=== PATIENT | female | born 1950 | race African-American/Black ===

== ENCOUNTER 2022-07-11 06:17 | Inpatient (IN) | payer OTHER, MEDICAID ==
[~2022-07-11] VITALS: Ht 160 cm; Wt 113.4 kg
[2022-07-11] VITALS (9 sets, daily range): BP systolic 125–150; BP diastolic 58–120
[~2022-07-11 06:17] MED LIST: CELEBREX PO; CLON0.1T PO; FLUT50DI; LISI20TA PO; OMEP40CA PO; P20 PO; SOMA PO
[2022-07-11 07:29] LABS: HEMATOCRIT. 22.3 % (36.0-48.0); LYMPHOCYTES % 12.5 % (20.0-50.0); MEAN CORPUSCULAR VOLUME 70.7 fL (81.0-99.0); MEAN PLATELET VOLUME 7.9 fl (7.4-10.4); MONOCYTES % 6.5 % (2.0-8.0); PLATELET 331 x1000/uL (130-400); RED BLOOD CELL COUNT 3.16 mill/uL (4.2-5.4); RED CELL DISTRIBUTION WIDTH 19.4 % (11.6-14.6)
[2022-07-11 07:30] LABS: CHLORIDE 109 mEq/L (98-107)
[2022-07-11 07:33] LABS: HEMOGLOBIN. 6.3 g/dL (12.0-16.0)
[2022-07-11 09:32] LABS: BG BASE EXCESS -3.1 mmol/L (-2.0-2.0); BG CARBOXYHEMOGLOBIN 0.6 % (0.5-1.5); BG DEOXYHEMOGLOBIN 9.5 % (0.0-5.0); BG FRACTION INSPIRED OXYGEN 21; BG METHEMOGLOBIN 0.5 % (0.0-1.5); BG OXYGEN SATURATION 90.4 % (92.0-98.5); BG OXYHEMOGLOBIN 89.4 % (94.0-97.0); BG PCO2 39.4 mmHg (35.0-45.0); BG PH 7.364 (7.350-7.450); BG SAMPLE SITE RIGHT BRACHIAL; BG TOTAL HEMOGLOBIN 6.5 g/dL (12.0-18.0); BG VENT MODE ROOM AIR
[2022-07-11] MEDS ORDERED: ENOXAPARIN 80MG/0.8ML SYR SUBCUT ONE (10:15)
[2022-07-11] MEDS ORDERED: FUROSEMIDE 40MG/4ML VIAL IVP ONE (10:30)
[2022-07-11] MEDS ORDERED: MORPHINE SULFATE 2 MG/ML CPJ (NOT FOR IM USE) IV ONE (10:30)
[2022-07-11] MEDS ORDERED: IOHEXOL-350 100 ML BOTTLE ONE (12:10)
[2022-07-11] MEDS ORDERED: ONDANSETRON HCL 4MG/2ML INJ IV PRN (12:45)
[2022-07-11] MEDS ORDERED: IPRATROPIUM/ALBUTEROL 0.5-3(2.5)MG/3ML NEB HHN PRN (12:45)
[2022-07-11] MEDS ORDERED: DIPHENHYDRAMINE 50MG/ML VIAL IV PRN (12:45)
[2022-07-11] MEDS ORDERED: CLONIDINE 0.1MG TABLET PO PRN (12:45)
[2022-07-11 15:39] LABS: TOTAL IRON BINDING CAPACITY 388 ug/dL (250-450)
[2022-07-11] MEDS: ACETAMINOPHEN 325MG TABLET PO PRN (20:59)
[2022-07-11 21:14] LABS: HEMATOCRIT 25.1 % (36.0-48.0); HEMOGLOBIN 7.5 g/dL (12.0-16.0)
[2022-07-12] VITALS (18 sets, daily range): BP systolic 127–165; BP diastolic 31–99
[2022-07-12] MEDS: ACETAMINOPHEN 325MG TABLET PO PRN (04:16)
[2022-07-12 06:15] LABS: CHLORIDE 104 mEq/L (98-107)
[2022-07-12 06:57] LABS: BASOPHILS % 0.9 % (0.0-2.0); HEMATOCRIT. 23.4 % (36.0-48.0); HEMOGLOBIN. 7.1 g/dL (12.0-16.0); LYMPHOCYTES % 20.8 % (20.0-50.0); MEAN CORPUSCULAR HEMOGLOBIN 21.6 pg (28.0-32.0); MEAN CORPUSCULAR VOLUME 71.4 fL (81.0-99.0); MEAN PLATELET VOLUME 7.9 fl (7.4-10.4); MONOCYTES % 10.3 % (2.0-8.0); PLATELET 272 x1000/uL (130-400); RED BLOOD CELL COUNT 3.28 mill/uL (4.2-5.4); RED CELL DISTRIBUTION WIDTH 21.1 % (11.6-14.6)
[2022-07-12] MEDS ORDERED: HYDROCODONE/ACETAMINOPHEN 5/325MG TABLET PO PRN (09:15)
[2022-07-12] MEDS: CLONIDINE 0.1MG TABLET PO SCH (09:29)
[2022-07-12] MEDS: LISINOPRIL 20MG TABLET PO SCH (09:30)
[2022-07-12] MEDS ORDERED: LORAZEPAM 2MG/ML CPJ IV PRN (11:15)
[2022-07-12] MEDS ORDERED: NALOXONE HCL 0.4MG/ML VIAL IV PRN (11:30)
[2022-07-12] MEDS: MORPHINE SULFATE 2 MG/ML CPJ (NOT FOR IM USE) IV PRN ×2 (15:05→22:32)
[2022-07-12] MEDS: CARISOPRODOL 350 MG TABLET PO SCH (15:25)
[2022-07-12 21:35] LABS: HEMATOCRIT 27.4 % (36.0-48.0); HEMOGLOBIN 8.3 g/dL (12.0-16.0); PLATELET 297 x1000/uL (130-400); RED BLOOD CELL COUNT 3.75 mill/uL (4.2-5.4); RED CELL DISTRIBUTION WIDTH 21.9 % (11.6-14.6)
[2022-07-13] VITALS (16 sets, daily range): BP systolic 106–169; BP diastolic 54–139
[2022-07-13] MEDS: CARISOPRODOL 350 MG TABLET PO SCH (09:17)
[2022-07-13] MEDS: LISINOPRIL 20MG TABLET PO SCH (09:17)
[2022-07-13] MEDS: CLONIDINE 0.1MG TABLET PO SCH (09:17)
[2022-07-13] MEDS: MORPHINE SULFATE 2 MG/ML CPJ (NOT FOR IM USE) IV PRN ×2 (12:20→23:13)
[2022-07-13] MEDS: PANTOPRAZOLE SODIUM 40 MG/VIAL IV SCH (17:40)
[2022-07-13 19:53] LABS: FOLIC ACID (FOLATE) SERUM 11.4 ng/mL (>5.38)
[2022-07-14] VITALS (12 sets, daily range): BP systolic 109–158; BP diastolic 65–95
[2022-07-14] MEDS: MORPHINE SULFATE 2 MG/ML CPJ (NOT FOR IM USE) IV PRN ×3 (05:47→22:23)
[2022-07-14 06:04] LABS: CHLORIDE 104 mEq/L (98-107)
[2022-07-14 06:14] LABS: BASOPHILS % 0.5 % (0.0-2.0); EOSINOPHILS % 4.9 % (0.0-5.0); HEMOGLOBIN. 8.9 g/dL (12.0-16.0); LYMPHOCYTES % 17.7 % (20.0-50.0); MEAN CORPUSCULAR VOLUME 76.4 fL (81.0-99.0); MEAN PLATELET VOLUME 7.7 fl (7.4-10.4); MONOCYTES % 11.5 % (2.0-8.0); NEUTROPHILS % 65.4 % (40.0-76.0); PLATELET 287 x1000/uL (130-400); RED BLOOD CELL COUNT 4.06 mill/uL (4.2-5.4); RED CELL DISTRIBUTION WIDTH 22.1 % (11.6-14.6)
[2022-07-14 08:42] LABS: PLATELET ESTIMATE NORMAL
[2022-07-14] MEDS: PANTOPRAZOLE SODIUM 40 MG/VIAL IV SCH (08:43)
[2022-07-14] MEDS: CARISOPRODOL 350 MG TABLET PO SCH (08:44)
[2022-07-14] MEDS: CLONIDINE 0.1MG TABLET PO SCH (08:50)
[2022-07-14] MEDS: LISINOPRIL 20MG TABLET PO SCH (08:50)
[2022-07-14] MEDS ORDERED: SENNOSIDES/DOCUSATE SOD 8.6/50MG TABLET PO NR (11:00)
[2022-07-14] MEDS ORDERED: FUROSEMIDE 40MG/4ML VIAL IVP SCH (13:30)
[2022-07-14] MEDS: FERROUS SULFATE 325MG TABLET PO SCH (17:53)
[2022-07-14] MEDS: ASCORBIC ACID 500 MG TABLET PO SCH (17:53)
[2022-07-14] MEDS ORDERED: SENNOSIDES/DOCUSATE SOD 8.6/50MG TABLET PO PRN (21:00)
[2022-07-15] VITALS (9 sets, daily range): BP systolic 106–144; BP diastolic 48–96
[2022-07-15] MEDS: MORPHINE SULFATE 2 MG/ML CPJ (NOT FOR IM USE) IV PRN ×2 (04:47→11:35)
[2022-07-15 06:19] LABS: HEMATOCRIT. 30.4 % (36.0-48.0); MEAN CORPUSCULAR HEMOGLOBIN 22.1 pg (28.0-32.0); MEAN CORPUSCULAR VOLUME 74.4 fL (81.0-99.0); MEAN PLATELET VOLUME 7.6 fl (7.4-10.4); PLATELET 304 x1000/uL (130-400); RED BLOOD CELL COUNT 4.08 mill/uL (4.2-5.4); RED CELL DISTRIBUTION WIDTH 22.6 % (11.6-14.6)
[2022-07-15] MEDS ORDERED: ASCO500T20 PO (07:19)
[2022-07-15] MEDS ORDERED: SENN1TAB35 PO (07:19)
[2022-07-15] MEDS ORDERED: FERR-63 PO (07:19)
[2022-07-15] MEDS: LACTULOSE 20G/30ML UDC PO NR ×2 (07:30→09:21)
[2022-07-15] MEDS: PANTOPRAZOLE SODIUM 40 MG/VIAL IV SCH (09:21)
[2022-07-15] MEDS: ASCORBIC ACID 500 MG TABLET PO SCH (09:22)
[2022-07-15] MEDS: CARISOPRODOL 350 MG TABLET PO SCH (09:23)
[2022-07-15] MEDS: FERROUS SULFATE 325MG TABLET PO SCH (09:23)
[2022-07-15] MEDS: LISINOPRIL 20MG TABLET PO SCH (09:24)
[2022-07-15] MEDS: CLONIDINE 0.1MG TABLET PO SCH (09:24)
[2022-07-15 12:40] LABS: PLATELET ESTIMATE NORMAL
== END 2022-07-15 15:40 | disposition home or self-care (01) | DRG 811 ==
LOC: ER 06:17 → EDBEDREQ 10:28 → EDBEDREQSVC 10:28 → ENRESERV 11:02 → 5EST 14:46
PROVIDERS: ADMIT Internal Medicine; ATTEND Internal Medicine
PROC: 30233N1 Transfusion of Nonautologous Red Blood Cells into Peripheral Vein, Percutaneous Approach (ICD-10-PCS; principal; 2022-07-11)
DX: D50.9 Iron deficiency anemia, unspecified (principal); J96.01 Acute respiratory failure with hypoxia; I31.3 Pericardial effusion (noninflammatory); G95.0 Syringomyelia and syringobulbia; M51.06 Intervertebral disc disorders with myelopathy, lumbar region; H91.90 Unspecified hearing loss, unspecified ear; M19.90 Unspecified osteoarthritis, unspecified site; M54.50 Low back pain, unspecified; M54.16 Radiculopathy, lumbar region; K59.00 Constipation, unspecified; M48.061 Spinal stenosis, lumbar region without neurogenic claudication; I11.0 Hypertensive heart disease with heart failure; I50.9 Heart failure, unspecified; M48.02 Spinal stenosis, cervical region; G89.29 Other chronic pain; Z20.822 Contact with and (suspected) exposure to COVID-19; Z96.649 Presence of unspecified artificial hip joint
CPT/HCPCS: 36415; 36600; 71045; 71250; 72141; 72146; 72148; 74018; 80048; 80053; 82270; 82375; 82607; 82728; 82746; 82805; 83540; 83550; 83880; 84484; 85014; 85018; 85025; 85027; 85044; 86850; 86900; 86920; 87426; 87804; 93005; 93306; 93970; 97162; 97166; 99291; C1893; C9113; C9803; J1650; J1940; J2060; J2270; P9016; Q9967

== ENCOUNTER 2024-11-16 16:22 | Inpatient (IN) | payer OTHER, MEDICAID ==
[~2024-11-16] VITALS: Ht 160 cm; Wt 108.9 kg
[2024-11-16] MEDS: IPRATROPIUM/ALBUTEROL 0.5-3(2.5)MG/3ML NEB HHN SCH (02:05)
[~2024-11-16 16:22] MED LIST changes: +ASCO500T20 PO; +FERR-63 PO; +SENN1TAB35 PO
[2024-11-16 17:59] LABS: HEMATOCRIT. 25.5 % (36.0-48.0); HEMOGLOBIN. 7.1 g/dL (12.0-16.0); MEAN CORPUSCULAR HEMOGLOBIN 27.3 pg (28.0-32.0); MEAN CORPUSCULAR HGB CONC 27.9 g/dL (31.0-37.0); MEAN CORPUSCULAR VOLUME 97.9 fL (81.0-99.0); RED BLOOD CELL COUNT 2.61 mill/uL (4.2-5.4); RED CELL DISTRIBUTION WIDTH 18.1 % (11.6-14.6); WHITE BLOOD COUNT 7.3 x1000/uL (4.5-11.0)
[2024-11-16 18:03] LABS: CARBON DIOXIDE 24 mEq/L (21-32); CHLORIDE 109 mEq/L (98-107); POTASSIUM 5.6 mEq/L (3.5-5.1); SODIUM 138 mEq/L (136-145)
[2024-11-16 18:04] LABS: CALCIUM 8.5 mg/dL (8.7-10.4)
[2024-11-16 18:09] LABS: CREATININE 1.6 mg/dL (0.6-1.0); GLUCOSE 103 mg/dL (70-105); UREA NITROGEN BLOOD 27 mg/dL (9-23)
[2024-11-16 18:11] LABS: TROPONIN I HIGH SENSITIVITY 6 ng/L (3.0-34)
[2024-11-16 18:14] LABS: DIFFERENTIAL COMMENT 1
[2024-11-16] MEDS: PANTOPRAZOLE SODIUM 40 MG/VIAL IV ONE (19:23)
[2024-11-16 19:26] LABS: MEAN PLATELET VOLUME 7.6 fl (7.4-10.4); PLATELET 246 x1000/uL (130-400)
[2024-11-16 19:28] LABS: ANISOCYTOSIS 1+; PLATELET ESTIMATE NORMAL
[2024-11-16] MEDS: ALBUTEROL (0.083%) 2.5MG/3ML NEB HHN ONE (19:45)
[2024-11-16] MEDS ORDERED: INSULIN REGULAR (HUMULIN R) 1000UNITS/10ML VIAL IV ONE (19:45)
[2024-11-16] MEDS: ACETAMINOPHEN 325MG TABLET PO ONE (21:25)
[2024-11-16] MEDS: DEXTROSE 50% WATER 50ML SYRINGE IV ONE (21:26)
[2024-11-16] MEDS: INSULIN REGULAR (HUMULIN R) 1000UNITS/10ML VIAL IV NR (21:46)
[2024-11-16] MEDS ORDERED: DOCUSATE SODIUM 100MG CAPSULE PO PRN (22:30)
[2024-11-16] MEDS ORDERED: ACETAMINOPHEN 325MG TABLET PO PRN (22:30)
[2024-11-16] MEDS ORDERED: IPRATROPIUM/ALBUTEROL 0.5-3(2.5)MG/3ML NEB HHN PRN (22:30)
[2024-11-16] MEDS ORDERED: ONDANSETRON HCL 4MG/2ML INJ IV PRN (22:30)
[2024-11-16] MEDS ORDERED: GUAIFENESIN 200MG/10ML SUGAR FREE UDC PO PRN (22:30)
[2024-11-16] MEDS: FUROSEMIDE 40MG/4ML VIAL IVP NR (22:45)
[2024-11-16 23:10] VITALS: PULSE 90; RESP 16; O2SAT 97
[2024-11-16 23:50] VITALS: BP 132/64; PULSE 114; RESP 19; TEMP 36.4736
[2024-11-17] VITALS (9 sets, daily range): BP systolic 93–141; BP diastolic 53–79; PULSE 75–114; RESP 18–22; TEMP 36.05844–37.05852; O2SAT 94–98
[2024-11-17] MEDS: CEFTRIAXONE 1GM/50ML 50 ML IV SCH ×2 (01:15→23:42)
[2024-11-17] MEDS: AZITHROMYCIN 500MG/250ML 250 ML IV SCH (02:09)
[2024-11-17] MEDS: ACETAMINOPHEN 325MG TABLET PO PRN (02:10)
[2024-11-17 02:53] LABS: IRON 32 ug/dL (50-170)
[2024-11-17 02:55] LABS: CREATINE KINASE 150 IU/L (34-145); LACTATE DEHYDROGENASE 241 IU/L (120-246)
[2024-11-17 02:56] LABS: TOTAL IRON BINDING CAPACITY 287 ug/dl (250-425)
[2024-11-17 07:14] LABS: FOLIC ACID (FOLATE) SERUM 19.06 ng/mL (>5.38); VITAMIN B12 SERUM 809 pg/mL (211-911)
[2024-11-17 07:34] LABS: BASOPHILS % 0.7 % (0.0-2.0); EOSINOPHILS % 2.7 % (0.0-5.0); HEMATOCRIT. 23.6 % (36.0-48.0); LYMPHOCYTES % 15.7 % (20.0-50.0); MEAN CORPUSCULAR HEMOGLOBIN 26.7 pg (28.0-32.0); MEAN CORPUSCULAR HGB CONC 29.8 g/dL (31.0-37.0); MEAN CORPUSCULAR VOLUME 89.7 fL (81.0-99.0); MEAN PLATELET VOLUME 8.2 fl (7.4-10.4); MONOCYTES % 9.6 % (2.0-8.0); NEUTROPHILS % 71.3 % (40.0-76.0); PLATELET 254 x1000/uL (130-400); RED BLOOD CELL COUNT 2.63 mill/uL (4.2-5.4); WHITE BLOOD COUNT 6.4 x1000/uL (4.5-11.0)
[2024-11-17 07:54] LABS: CALCIUM 8.9 mg/dL (8.7-10.4); POTASSIUM 5.7 mEq/L (3.5-5.1)
[2024-11-17 07:58] LABS: THYROID STIMULATING HORMONE 1.4 uIU/mL (0.55-4.78)
[2024-11-17 08:00] LABS: CREATININE 1.7 mg/dL (0.6-1.0)
[2024-11-17] MEDS ORDERED: ALBUTEROL (0.5%) 2.5MG/0.5ML NEB HHN NR (08:15)
[2024-11-17] MEDS: ENOXAPARIN 30MG/0.3ML SYR SUBCUT SCH (09:00)
[2024-11-17] MEDS: LIDOCAINE 5% PATCH TOP SCH (09:10)
[2024-11-17] MEDS ORDERED: NALOXONE HCL 0.4MG/ML VIAL IV PRN (17:00)
[2024-11-17 17:21] LABS: HEMATOCRIT 24.2 % (36.0-48.0); HEMOGLOBIN 7.2 g/dL (12.0-16.0)
[2024-11-17 17:26] LABS: POTASSIUM 5.8 mEq/L (3.5-5.1)
[2024-11-17] MEDS: SODIUM CHLORIDE 0.9% 1,000 ML IV SCH (18:14)
[2024-11-17] MEDS: DEXTROSE 50% WATER 50ML SYRINGE IV NR (18:26)
[2024-11-17] MEDS: INSULIN REGULAR (HUMULIN R) 1000UNITS/10ML VIAL IV NR (18:27)
[2024-11-17] MEDS: HYDROCODONE/ACETAMINOPHEN 5/325MG TABLET PO PRN (18:34)
[2024-11-17] MEDS: FAMOTIDINE 20MG TABLET PO SCH (21:07)
[2024-11-17] MEDS: ATORVASTATIN CALCIUM 20MG TABLET PO SCH (21:08)
[2024-11-17] MEDS: BUDESONIDE 0.5MG/2ML NEB HHN SCH (21:50)
[2024-11-18] VITALS (12 sets, daily range): BP systolic 112–142; BP diastolic 62–75; PULSE 71–111; RESP 16–20; TEMP 36.33624–36.9474; O2SAT 96–100
[2024-11-18] MEDS: AZITHROMYCIN 500MG/250ML 250 ML IV SCH (00:07)
[2024-11-18] MEDS ORDERED: INSULIN REGULAR (HUMULIN R) 1000UNITS/10ML VIAL IV ONE (08:15)
[2024-11-18] MEDS ORDERED: ALBUTEROL (0.5%) 2.5MG/0.5ML NEB HHN NR (08:15)
[2024-11-18] MEDS ORDERED: DEXTROSE 50% WATER 50ML SYRINGE IV ONE (08:15)
[2024-11-18 09:02] LABS: HEMATOCRIT 21.7 % (36.0-48.0); MEAN CORPUSCULAR HEMOGLOBIN 26.6 pg (28.0-32.0); MEAN CORPUSCULAR HGB CONC 29.9 g/dL (31.0-37.0); MEAN CORPUSCULAR VOLUME 88.8 fL (81.0-99.0); PLATELET 239 x1000/uL (130-400); RED BLOOD CELL COUNT 2.45 mill/uL (4.2-5.4); RED CELL DISTRIBUTION WIDTH 17.1 % (11.6-14.6); WHITE BLOOD COUNT 7.5 x1000/uL (4.5-11.0)
[2024-11-18 09:11] LABS: CALCIUM 8.7 mg/dL (8.7-10.4); CARBON DIOXIDE 26 mEq/L (21-32); CHLORIDE 109 mEq/L (98-107); POTASSIUM 5.7 mEq/L (3.5-5.1); SODIUM 139 mEq/L (136-145)
[2024-11-18 09:16] LABS: CREATININE 1.4 mg/dL (0.6-1.0); GLUCOSE 91 mg/dL (70-105)
[2024-11-18 09:17] LABS: UREA NITROGEN BLOOD 27 mg/dL (9-23)
[2024-11-18 09:18] LABS: PHOSPHORUS 4.3 mg/dL (2.5-4.9)
[2024-11-18 09:23] LABS: HEMOGLOBIN 6.5 g/dL (12.0-16.0)
[2024-11-18] MEDS: SODIUM BICARBONATE 8.4% 50MEQ/50ML SYR IV NR (11:06)
[2024-11-18] MEDS: PANTOPRAZOLE 40MG DR TABLET PO SCH (11:13)
[2024-11-18] MEDS: SODIUM ZIRCONIUM CYCLOSILICATE 10GM/PACKET PO NR (11:19)
[2024-11-18] MEDS ORDERED: TRAMADOL 50MG TABLET PO PRN (14:30)
[2024-11-18] MEDS: INSULIN REGULAR (HUMULIN R) 1000UNITS/10ML VIAL IV NR (14:45)
[2024-11-18] MEDS ORDERED: INSULIN REGULAR (HUMULIN R) 1000UNITS/10ML VIAL IV NR (14:45)
[2024-11-18 15:51] LABS: HEMATOCRIT 25.6 % (36.0-48.0); HEMOGLOBIN 7.8 g/dL (12.0-16.0)
[2024-11-18 15:54] LABS: BASOPHILS % 0.8 % (0.0-2.0); EOSINOPHILS % 2.8 % (0.0-5.0); HEMATOCRIT. 26.7 % (36.0-48.0); HEMOGLOBIN. 8.1 g/dL (12.0-16.0); MEAN CORPUSCULAR HEMOGLOBIN 27.3 pg (28.0-32.0); MEAN CORPUSCULAR HGB CONC 30.2 g/dL (31.0-37.0); MEAN CORPUSCULAR VOLUME 90.3 fL (81.0-99.0); MEAN PLATELET VOLUME 7.7 fl (7.4-10.4); MONOCYTES % 8.8 % (2.0-8.0); NEUTROPHILS % 72.6 % (40.0-76.0); PLATELET 254 x1000/uL (130-400); RED BLOOD CELL COUNT 2.95 mill/uL (4.2-5.4); RED CELL DISTRIBUTION WIDTH 16.5 % (11.6-14.6)
[2024-11-18 16:04] LABS: POTASSIUM 5.2 mEq/L (3.5-5.1)
[2024-11-18] MEDS: DEXTROSE 50% WATER 50ML SYRINGE IV NR (18:46)
[2024-11-18] MEDS: HYDROCODONE/ACETAMINOPHEN 7.5/325MG TABLET PO PRN (22:11)
[2024-11-19] MEDS ORDERED: AZITHROMYCIN 500 MG TABLET PO SCH (21:00)
== END 2024-11-18 23:06 | disposition short-term general hospital (02) | DRG 189 ==
LOC: ER 16:22 → 7WST 20:47 → EDBEDREQ 20:51 → EDBEDREQTM 20:51
PROVIDERS: ADMIT Hospitalist; ATTEND Hospitalist
PROC: 30233N1 Transfusion of Nonautologous Red Blood Cells into Peripheral Vein, Percutaneous Approach (ICD-10-PCS; principal; 2024-11-18)
DX: J96.01 Acute respiratory failure with hypoxia (principal); N17.0 Acute kidney failure with tubular necrosis; J44.1 Chronic obstructive pulmonary disease with (acute) exacerbation; D62 Acute posthemorrhagic anemia; Z68.41 Body mass index [BMI] 40.0-44.9, adult; I13.0 Hypertensive heart and chronic kidney disease with heart failure and stage 1 through stage 4 chronic kidney disease, or unspecified chronic kidney disease; J96.02 Acute respiratory failure with hypercapnia; I50.9 Heart failure, unspecified; M48.00 Spinal stenosis, site unspecified; Z20.822 Contact with and (suspected) exposure to COVID-19; E87.5 Hyperkalemia; N18.9 Chronic kidney disease, unspecified; E87.8 Other disorders of electrolyte and fluid balance, not elsewhere classified; G89.29 Other chronic pain; M10.9 Gout, unspecified; I87.2 Venous insufficiency (chronic) (peripheral); R32 Unspecified urinary incontinence; Z96.649 Presence of unspecified artificial hip joint; E78.5 Hyperlipidemia, unspecified; E66.01 Morbid (severe) obesity due to excess calories; Z86.0100 Personal history of colon polyps, unspecified
CPT/HCPCS: 36415; 71045; 76770; 80048; 80061; 82550; 82607; 82746; 82962; 83036; 83540; 83550; 83615; 83735; 83880; 84100; 84132; 84145; 84443; 84484; 85014; 85018; 85025; 85027; 85379; 86850; 86900; 86920; 87426; 93005; 93970; 94070; 94640; 94760; 99291; A4606; A4663; C1893; J0456; J0696; J1650; J1815; J1940; J2470; J3490; J7030; J7626; P9016

== ENCOUNTER 2025-03-18 23:22 | Emergency (ER) | payer OTHER, MEDICAID ==
[~2025-03-18] VITALS: Ht 167.6 cm; Wt 128.0 kg
[2025-03-18 23:24] VITALS: O2SAT 99
[2025-03-19 00:49] LABS: BASOPHILS % 0.9 % (0.0-2.0); EOSINOPHILS % 2.1 % (0.0-5.0); HEMATOCRIT. 29.8 % (36.0-48.0); HEMOGLOBIN. 9.1 g/dL (12.0-16.0); LYMPHOCYTES % 14.1 % (20.0-50.0); MEAN CORPUSCULAR HGB CONC 30.6 g/dL (31.0-37.0); MEAN CORPUSCULAR VOLUME 91.3 fL (81.0-99.0); MEAN PLATELET VOLUME 7.5 fl (7.4-10.4); MONOCYTES % 9.5 % (2.0-8.0); NEUTROPHILS % 73.4 % (40.0-76.0); PLATELET 206 x1000/uL (130-400); RED BLOOD CELL COUNT 3.27 mill/uL (4.2-5.4); RED CELL DISTRIBUTION WIDTH 17.7 % (11.6-14.6); WHITE BLOOD COUNT 5.6 x1000/uL (4.5-11.0)
[2025-03-19 01:02] LABS: CARBON DIOXIDE 26 mEq/L (21-32); CHLORIDE 108 mEq/L (98-107); POTASSIUM 5.2 mEq/L (3.5-5.1); SODIUM 140 mEq/L (136-145)
[2025-03-19 01:03] LABS: CALCIUM 8.6 mg/dL (8.7-10.4)
[2025-03-19 01:07] LABS: CREATININE 1.4 mg/dL (0.6-1.0)
[2025-03-19 01:08] LABS: ETHANOL BLOOD < 10 mg/dL (<10); GLUCOSE 89 mg/dL (70-105); UREA NITROGEN BLOOD 23 mg/dL (9-23)
[2025-03-19 01:12] LABS: PARTIAL THROMBOPLASTIN TIME 22.3 sec (23.4-31.0); PROTHROMBIN TIME 10.9 sec (9.6-11.0)
[2025-03-19 01:19] LABS: TROPONIN I HIGH SENSITIVITY 10 ng/L (3.0-34)
[2025-03-19] MEDS: FUROSEMIDE 40MG/4ML VIAL IVP NR (02:18)
[2025-03-19 07:45] VITALS: BP 136/72; PULSE 98; RESP 22; TEMP 36.8; O2SAT 97
== END 2025-03-19 08:16 | disposition short-term general hospital (02) ==
LOC: ER 23:22 → CANBEDREQ 03-19 08:11 → ER 03-19 08:16
DX: I11.0 Hypertensive heart disease with heart failure (principal); I50.9 Heart failure, unspecified; D64.9 Anemia, unspecified; N28.9 Disorder of kidney and ureter, unspecified; E11.9 Type 2 diabetes mellitus without complications; J44.9 Chronic obstructive pulmonary disease, unspecified; M19.90 Unspecified osteoarthritis, unspecified site; Z79.51 Long term (current) use of inhaled steroids; Z79.899 Other long term (current) drug therapy; Z96.649 Presence of unspecified artificial hip joint
CPT/HCPCS: 36415; 71045; 93005; 99285; 80048; 80320; 83880; 85025; 85610; 85730; 84484; 96374; J1940; G0480